=== PATIENT | female | born 1940 | race Caucasian/White ===

== ENCOUNTER 2019-04-27 06:01 | Emergency (ER) | payer MEDICARE, MEDICAID ==
[~2019-04-27] VITALS: Ht 165.1 cm; Wt 104.5 kg
--- NOTE | 2019-04-27 06:09 | NUR ---
TO BED 2 BIB [facility] C/O NONRADIATING MIDSTERNAL CHEST PAIN X2 DAYS, WORSE TODAY. PT AAOX4 NO ACUTE DISTRESS NOTED, RESP EVEN AND UNLABORED. SKIN WARM, NONDIAPHORETIC. PT WAS GIVEN 3 NITRO SPRAY BY [employer] SALES/MARKETING. PLACE PT ON CARDIAC MONITORING, CONTINUOUS POX. ER MD AT BEDSIDE TO EVAL PT WITH ORDERS RECIEVED. WILL CARRY OUT ORDER. PT AT BEDSIDE.
--- NOTE | 2019-04-27 06:15 | NUR ---
STARTED SL 18G TO R HAND, BLOOD DRAWN AND SENT TO LAB.
[2019-04-27] MEDS ORDERED: MORPHINE SULFATE INJ 2 MG/ML DISP.SYRIN IV ONE (06:30)
[2019-04-27] MEDS ORDERED: ONDANSETRON HCL/PF 4 MG/2 ML VIAL IVP ONE (06:30)
[2019-04-27] MEDS ORDERED: FAMOTIDINE/PF INJ 20 MG/2 ML VIAL IV ONE ×2 (06:30→06:42)
[2019-04-27 06:32] LABS: BASOPHILS # (AUTO) 0.1 /CMM (0.0-0.2); CALCIUM, SERUM 8.4 mg/dL (8.5-10.1); CARBON DIOXIDE 22 mmol/L (21-32); CHLORIDE 107 mmol/L (98-107); EOSINOPHILS % (AUTO) 2.8 % (0.0-6.0); GLUCOSE 125 mg/dL (74-106); HEMATOCRIT 40 % (33-45); HEMOGLOBIN 13.8 g/dL (11.5-14.8); MEAN CORPUSCULAR HGB CONC 35 g/dl (31.0-36.0); MEAN CORPUSCULAR VOLUME 91 fL (82-100); MONOCYTES # (AUTO) 0.6 /CMM (0.1-1.30); MONOCYTES % (AUTO) 7.9 % (2.0-12.0); NEUTROPHILS # (AUTO) 3.4 /CMM (1.8-8.9); NEUTROPHILS % (AUTO) 46.3 % (43.0-81.0); PLATELET COUNT (AUTO) 192 /CMM (150-450); POTASSIUM 4.2 mmol/L (3.5-5.1); RED BLOOD CELL COUNT(AUTO) 4.35 MIL/uL (4.0-5.2); SODIUM SERUM 140 mmol/L (136-145); UREA NITROGEN, BLOOD 20 mg/dL (7-18); WHITE BLOOD COUNT (AUTO) 7.3 K/uL (4.3-11.0)
--- NOTE | 2019-04-27 06:40 | NUR ---
PT TRANSPORTED TO RADIOLOGY FOR CT.
[2019-04-27] MEDS ORDERED: ONDANSETRON HCL/PF 4 MG/2 ML VIAL ONE (06:41)
[2019-04-27] MEDS ORDERED: MORPHINE SULFATE INJ 4 MG/ML DISP.SYRIN ONE (06:42)
--- NOTE | 2019-04-27 06:53 | NUR ---
PT BACK FROM RADIOLOGY. PENDING CT ABD/PELVIS RESULT.
--- NOTE | 2019-04-27 07:01 | NUR ---
PT REFUSE IV MEDS, PT DENIES PAIN OR NAUSEA AT THIS TIME. PT DAUGHTER AT BEDSIDE.
--- NOTE | 2019-04-27 07:09 | NUR ---
REPORT GIVEN TO AM SHIFT SHANIQUE FREEMAN.
[2019-04-27 10:41] VITALS: BP 140/88
--- NOTE | 2019-04-27 10:43 | NUR ---
Patient discharged to home in stable condition. Written and verbal after care instructions given. Patient verbalizes understanding of instruction.IV removed. Catheter intact and site benign. Pressure and 4x4 applied to site. No bleeding noted.
== END 2019-04-27 10:42 | disposition home or self-care (01) ==
LOC: ER 06:01
DX: R07.89 Other chest pain (principal); I10 Essential (primary) hypertension; E78.5 Hyperlipidemia, unspecified; E66.01 Morbid (severe) obesity due to excess calories; Z68.38 Body mass index [BMI] 38.0-38.9, adult
CPT/HCPCS: 36415; 71045-TC; 80048-TC; 84484-TC; 85025-TC; J2270; J2405; J3490